=== PATIENT | male | born 1990 | race Caucasian/White ===

== ENCOUNTER 2022-05-06 16:04 | Emergency (ER) | payer BC ==
[~2022-05-06 16:04] MED LIST: PROVENTIL HFA6.7 GM INH; ZITHROMAX250 MG PO
[2022-05-06 16:40] LABS: HEMOGLOBIN 13.6 gm/dl (14.0-17.5); RED BLOOD COUNT 4.79 M/UL (4.20-5.50); WHITE BLOOD COUNT 3.6 K/UL (4.5-11.0)
[2022-05-06 17:00] LABS: BUN/CREATININE RATIO 17 (0-10)
== END 2022-05-06 21:30 | disposition home or self-care (01) ==
LOC: ER1 16:04
PROVIDERS: Student in an Organized Health Care Education/Training Program
DX: U07.1 COVID-19 (principal)
CPT/HCPCS: 0240U; 71045; 80053; 81001; 83605; 85025; 87040; 99283